=== PATIENT | female | born 1955 | race Caucasian/White ===

== ENCOUNTER 2017-02-20 19:37 | Emergency (ER) | payer OTHER ==
[~2017-02-20] VITALS: Ht 160 cm; Wt 57.0 kg
[2017-02-20 20:11] VITALS: Ht 160 cm; Wt 57.0 kg
[2017-02-20 20:30] VITALS: BP 138/77; PULSE 77; RESP 20; TEMP 98.5
--- NOTE | 2017-02-20 20:48 | RADRPT ---
PROCEDURE: XR Chest. CLINICAL INDICATION: Chest pain. TECHNIQUE: Portable AP upright view of the chest was obtained. COMPARISON: None. FINDINGS: The cardiomediastinal silhouette is within normal limits. The lungs are clear, the left hemidiaphra gm is mildly elevated. There is no evidence for pleural effusion, pneumothorax or pulmonary vascula r congestion. Internal fixation plate and screws of the visible right humerus are demonstrated. Th ere is concern for a nondisplaced left humeral neck fracture. Calcification of the aorta is present. RPTAT:HJJR IMPRESSION: 1. Elevation of the left hemidiaphragm without evidence for acute intrathoracic pathology. 2. Internally fixated right proximal humerus fracture. 3. Partially visualized fracture of the left humeral neck. 4. Aortic atherosclerosis is present. Physician Mackenzie Date Time Electronically viewed and signed by Physician Mackenzie on 02/20/2017 20:48 /
--- NOTE | 2017-02-20 20:50 | RADRPT ---
PROCEDURE: XR Elbow. CLINICAL INDICATION: Left elbow pain, post traumatic TECHNIQUE: AP, lateral and oblique views of the left elbow performed. COMPARISON: None. FINDINGS: There is normal mineralization and alignment. No fracture or osseous lesion is identified. The dista l humerus, proximal radius and proximal ulna are unremarkable, and the joint spaces are preserved. T he soft tissues are unremarkable. There is no evidence of a joint effusion. Thin linear superficial subcutaneous needle-like radiopaque foreign body in the antecubital fossa is approximately 5 mm in l ength RPTAT:HJJR IMPRESSION: 1. No evidence of acute osseous abnormality of the left elbow. 2. Thin subcutaneous metallic type density concerning for a radiopaque foreign body, possibly a nee dle fragment, within the antecubital fossa. Physician Mackenzie Date Time Electronically viewed and signed by Physician Mackenzie on 02/20/2017 20:50 /
--- NOTE | 2017-02-20 20:51 | RADRPT ---
PROCEDURE: XR shoulder. CLINICAL INDICATION: Post traumatic left shoulder pain TECHNIQUE: Two views of the left shoulder were performed. COMPARISON: None available. FINDINGS: Abnormal lucency of the proximal humeral neck is consistent with an acute fracture. The scapula and visualized clavicle are unremarkable . The joint spaces are preserved. Mild soft tissue swelling is present RPTAT:HJJR IMPRESSION: Acute, closed, nondisplaced left humeral neck fracture. Physician Mackenzie Date Time Electronically viewed and signed by Arben Davis Physician on 02/20/2017 20:50 JR/
[2017-02-20] MEDS ORDERED: ONDANSETRON (ODT) 4 MG TAB ODT STA (20:56)
[2017-02-20] MEDS ORDERED: morphine 10 MG INJ IM ONE (21:00)
--- NOTE | 2017-02-20 21:32 | ERD ---
ER Documentation Chief Complaint Date/Time DATE: 02/20/17 TIME: 21:25 Chief Complaint PAIN TO BROKEN LEFT ARM; SEEN AT [facility] YESTERDAY; DID NOT FEEL RX. HPI This is a 61-year-old female, complains of pain to her broken left shoulder. She denies any fevers or chills. Denies any new trauma. Denies any other current issues. Denies any numbness or tingling. Patient was seen at [facility] and placed in a sling. States she was not given pain medication prescription. ROS All systems reviewed and are negative except as per history of present illness. Physical Exam Vitals Vital Signs Date Time Temp Pulse Resp B/P Pulse Ox O2 Delivery O2 Flow Rate FiO2 02/20/17 20:11 98.5 100 22 140/82 100 Physical Exam Const: [] Head: Atraumatic Eyes: Normal Conjunctiva ENT: Normal External Ears, Nose and Mouth. Neck: Full range of motion..~ No meningismus. Resp: Clear to auscultation bilaterally Cardio: Regular rate and rhythm, no murmurs Abd: Soft, non tender, non distended. Normal bowel sounds Skin: No petechiae or rashes Back: No midline or flank tenderness Ext: No cyanosis, or edema Neur: Awake and alert Psych: Normal Mood and Affect Results 24 hrs Current Medications Medications (Trade) Dose Ordered Sig/Becka Route PRN Reason Start Time Stop Time Status Last Admin Dose Admin Morphine Sulfate (morphine) 4 mg ONCE ONCE IM 02/20/17 21:00 02/20/17 21:01 DC 02/20/17 21:06 Ondansetron HCl (Zofran Odt) 4 mg ONCE STAT ODT 02/20/17 20:56 02/20/17 20:57 DC 02/20/17 21:06 Procedures/MDM X-ray Shoulder 3V Interpreted by me: Bones: Community humerus fracture Joints: No dislocation Foreign body: None X-ray Elbow 3V Interpreted by me: Fat Pads: [Normal] Bones: [No fracture] Joints: [No dislocation] Foreign body: [None] Medical decision-making: Patient has a fracture. She was placed in a sling at [facility] yesterday. Given pain medications here with the resolved. Patient will be discharged home. Departure Diagnosis: Primary Impression: Shoulder fracture Encounter type: initial encounter Fracture type: closed Laterality: left Qualified Code: S42.92XA - Shoulder fracture, left, closed, initial encounter Condition: Stable NILESH CORTES February 20, 2017 21:32
[2017-02-20] MEDS ORDERED: HYDR-902 PO (21:33)
== END 2017-02-20 22:04 | disposition home or self-care (01) ==
LOC: E/R 19:37
DX: S42.92XA Fracture of left shoulder girdle, part unspecified, initial encounter for closed fracture (principal); R07.9 Chest pain, unspecified; X58.XXXA Exposure to other specified factors, initial encounter; Y92.9 Unspecified place or not applicable
CPT/HCPCS: 71010; 73030; 73080; 96372; 99284; J2270

== ENCOUNTER 2017-03-06 17:09 | Inpatient (IN) | payer OTHER, MEDICAID ==
[~2017-03-06] VITALS: Ht 160 cm; Wt 59.6 kg
[~2017-03-06 17:09] MED LIST: HYDR-902 PO
[2017-03-06] MEDS ORDERED: CEFEPIME 2GM/50 ML (PMX) 50 ML IVPB STA (17:26)
[2017-03-06] MEDS ORDERED: SODIUM CHLORIDE 0.9% 1L BAG IV* STA (17:26)
[2017-03-06] MEDS ORDERED: ALBUTEROL 0.083% (NEB) 2.5 MG/3 ML AMP HHN STA ×2 (17:26→20:23)
[2017-03-06] MEDS ORDERED: METHYLPREDNISOLONE 125 MG INJ IV ONE (17:30)
[2017-03-06] MEDS ORDERED: IPRATROPIUM (NEB) 0.5 MG/2.5 ML AMP HHN ONE (17:30)
--- NOTE | 2017-03-06 17:51 | ERA ---
ER Documentation Chief Complaint Date/Time DATE: 03/06/17 TIME: 17:50 Chief Complaint pt is here for sob x 4 days HPI 61-year-old female with 4 days of progressive shortness of breath but is now severe. She has a history of asthma. She is also had significant cough as well as feeling feverish and having chills. She also has generalized weakness and malaise. She denies chest pain. She states that she feels "very sick". Has malaise and generalized weakness. She does have left arm pain where she recently suffered a humeral fracture and is currently in a sling for healing. She was evaluated and no surgery was required at that point. ROS All systems reviewed and are negative except as per history of present illness. Medications Home Meds Reported Medications Fluoxetine Hcl* (Prozac*) 40 Mg Capsule, 40 MG PO DAILY, CAP 03/06/17 Discontinued Scripts Hydrocodone/Acetaminophen ([facility] 10-325 Tablet) 1 Each Tablet, 1 TAB PO Q6H Y for PAIN, #20 TAB Prov:NILESH CORTES 02/20/17 Allergies Allergies: Coded Allergies: Sulfa (Sulfonamide Antibiotics) (Unverified Allergy, Unknown, RASH HIVES, 03/06/17) PMhx/Soc History of Surgery: Yes (RIGHT ARM, SHOULDER AND ANNIKA HIPS X 4) Anesthesia Reaction: No Hx Respiratory Disorders: No Hx Cardiac Disorders: No Hx Psychiatric Problems: Yes (ANXIETY) Hx Miscellaneous Medical Probl: Yes (EPILEPSY) Hx Alcohol Use: Yes Hx Substance Use: No Hx Tobacco Use: Yes Smoking Status: Never smoker Physical Exam Vitals Vital Signs Date Time Temp Pulse Resp B/P Pulse Ox O2 Delivery O2 Flow Rate FiO2 03/06/17 17:55 117 26 126/76 100 Mask 03/06/17 17:37 89 18 94 21 03/06/17 17:22 98.3 132 18 118/62 95 Physical Exam Const: [] Moderate distress, appears very short of breath, tachypnea Head: Atraumatic Eyes: Normal Conjunctiva ENT: Normal External Ears, Nose and Mouth. Neck: Full range of motion..~ No meningismus. Resp: I lateral expiratory wheezes, mild tachypnea Cardio: Regular tachycardia, no murmurs Abd: Soft, non tender, non distended. Normal bowel sounds Skin: No petechiae or rashes Back: No midline or flank tenderness Ext: No cyanosis, or edema Neur: Awake and alert and oriented 3, no focal deficits Psych: Anxious. Result Diagram: 03/06/17 1900 03/06/17 1850 Results 24 hrs Laboratory Tests Test 03/06/17 17:26 03/06/17 18:50 03/06/17 19:00 Lactic Acid Level 2.8mmol/L Prothrombin Time 14.2Sec Prothrombin Time Ratio 1.1 INR International Normalized Ratio 1.10 Activated Partial Thromboplast Time 20.0Sec Sodium Level 141mmol/L Potassium Level 3.1mmol/L Chloride Level 116mmol/L Carbon Dioxide Level 19mmol/L Anion Gap 9 Blood Urea Nitrogen 20mg/dl Creatinine 0.67mg/dl Glucose Level 117mg/dl Calcium Level 8.5mg/dl Total Bilirubin 0.1mg/dl Direct Bilirubin 0.00mg/dl Indirect Bilirubin 0.1mg/dl Aspartate Amino Transf (AST/SGOT) 72IU/L Alanine Aminotransferase (ALT/SGPT) 49IU/L Alkaline Phosphatase 182IU/L Troponin I 0.020ng/ml B-Type Natriuretic Peptide 430PG/ML Total Protein 7.4g/dl Albumin 3.3g/dl Globulin 4.10g/dl Albumin/Globulin Ratio 0.80 White Blood Count 13.210^3/ul Red Blood Count 3.6010^6/ul Hemoglobin 11.1g/dl Hematocrit 34.2% Mean Corpuscular Volume 95.0fl Mean Corpuscular Hemoglobin 30.8pg Mean Corpuscular Hemoglobin Concent 32.5g/dl Red Cell Distribution Width 15.4% Platelet Count 67702^3/UL Mean Platelet Volume 9.3fl Neutrophils % 90.8% Lymphocytes % 5.0% Monocytes % 2.8% Eosinophils % 0.4% Basophils % 0.3% Nucleated Red Blood Cells % 0.0/100WBC Neutrophils # 12.010^3/ul Lymphocytes # 0.710^3/ul Monocytes # 0.410^3/ul Eosinophils # 0.110^3/ul Basophils # 0.010^3/ul Nucleated Red Blood Cells # 0.010^3/ul Current Medications Medications (Trade) Dose Ordered Sig/Becka Route PRN Reason Start Time Stop Time Status Last Admin Dose Admin Sodium Chloride 1760 ml 1,760 ml BOLUS OVER 2 HOURS STAT IV* 03/06/17 17:26 03/06/17 17:29 DC 03/06/17 18:10 Cefepime HCl (Maxipime 2gm/50 ml (Pmx)) 50 ml @ 100 mls/hr ONCE STAT IVPB 03/06/17 17:26 03/06/17 17:55 DC 03/06/17 19:04 Albuterol (Proventil 0.083% (Neb)) 10 mg ONCE STAT HHN 03/06/17 17:26 03/06/17 17:29 DC 03/06/17 17:35 Ipratropium Madeline (Atrovent 0.02% (Neb)) 1 mg ONCE ONCE HHN 03/06/17 17:30 03/06/17 17:31 DC 03/06/17 17:35 Methylprednisolone Sodium Succinate (Solu-Medrol) 125 mg ONCE ONCE IV 03/06/17 17:30 03/06/17 17:31 DC 03/06/17 18:10 Morphine Sulfate 4 mg 4 mg ONCE STAT IV 03/06/17 18:46 03/06/17 18:48 DC 03/06/17 18:50 Sodium Chloride (NS) 1,000 ml @ 1,000 mls/hr Q1H ONCE IV 03/06/17 20:30 03/06/17 21:29 03/06/17 21:10 Albuterol (Proventil 0.083% (Neb)) 5 mg ONCE STAT HHN 03/06/17 20:23 03/06/17 20:24 DC Ondansetron HCl (Zofran Inj) 4 mg ER BRIDGE PRN IV NAUSEA AND/OR VOMITING 03/06/17 21:00 03/07/17 20:59 Acetaminophen (Tylenol Tab) 650 mg ER BRIDGE PRN PO MILD PAIN/FEVER 03/06/17 21:00 03/07/17 20:59 Procedures/MDM Pneumonia with sepsis. Patient presented in respiratory extremis with wheezing. 10 mg albuterol and 1 mg Atrovent breathing treatment was given. Patient is very tachycardic. Septic workup was performed and she was given 30 cc/kg of IV fluid. Treated with cefepime as well. She is also given morphine for her recent fracture pain of the left arm. Patient remained tachycardic of the tachycardia was improved with fluid administration. Patient had no episodes of hypotension. Vancomycin was added. Patient required in another breathing treatment and saturation was going down into the low 90s when taken off the nonrebreather. Spoke with the [facility] doctor who agreed the patient was not stable for transfer at this time. Dr. Deng. He authorized admission to panel doctor. She will be admitted to the left telemetry as I believe the patient is improved enough to not require ICU. EKG interpretation: Sinus tachycardia rate of 120, shortened AK interval, left axis deviation, no ST or T-wave changes concerning for acute ischemia program dir interpretation: Sinus tachycardia improved with fluid administration. No other arrhythmias Chest x-ray interpretation: Large left-sided pneumonia, no pneumothorax, no pulmonary edema, no fractures Left humerus x-ray: Acute left proximal humerus fracture. Critical care time 44 minutes: This includes treatment of pneumonia with sepsis and respiratory distress, careful fluid administration, early antibiotic administration, consideration of noninvasive positive pressure ventilation, use of multiple bronchodilators, multiple visits patient's bedside to reassess status, chart reviewed, discussion with admitting doctor. This does not include any billable procedures per Departure Diagnosis: Primary Impression: Sepsis due to pneumonia Additional Impressions: COPD exacerbation Lactic acidosis Respiratory distress Condition: Serious TAMIA GOMEZ DO March 06, 2017 17:51
[2017-03-06] MEDS ORDERED: FLUO40CA10 PO (18:08)
[2017-03-06 18:42] LABS: ADD SCAN DIFF NO
[2017-03-06] MEDS ORDERED: morphine 4 MG/ML VIAL IV STA ×2 (18:46→21:30)
[2017-03-06 19:37] LABS: BASOPHILS % 0.3 % (0.0-2.0); EOSINOPHILS # 0.1 10^3/ul (0.0-0.5); EOSINOPHILS % 0.4 % (0.0-7.0); HEMATOCRIT 34.2 % (37.0-47.0); HEMOGLOBIN 11.1 g/dl (12.0-16.0); LYMPHOCYTES # 0.7 10^3/ul (0.8-2.9); MEAN CORPUSCULAR HEMOGLOBIN 30.8 pg (29.0-33.0); MEAN CORPUSCULAR HGB CONC 32.5 g/dl (32.0-37.0); MEAN PLATELET VOLUME 9.3 fl (7.4-10.4); MONOCYTE # 0.4 10^3/ul (0.3-0.9); MONOCYTES % 2.8 % (0.0-11.0); NEUTROPHILS % 90.8 % (39.0-77.0); PLATELET COUNT 324 10^3/UL (140-415); RED CELL DISTRIBUTION WIDTH 15.4 % (11.5-14.5); WHITE BLOOD COUNT 13.2 10^3/ul (4.8-10.8)
[2017-03-06 19:41] LABS: INR 1.1; PROTIME 14.2 Sec (12.2-14.2); PT RATIO 1.1
[2017-03-06 19:46] LABS: ALBUMIN 3.3 g/dl (3.3-4.9); POTASSIUM 3.1 mmol/L (3.5-5.1)
[2017-03-06 19:48] LABS: CREATININE 0.67 mg/dl (0.44-1.00)
[2017-03-06 19:49] LABS: ALBUMIN/GLOBULIN RATIO 0.8; BILIRUBIN,INDIRECT 0.1 mg/dl (0-1.1); BILIRUBIN,TOTAL 0.1 mg/dl (0.2-1.3); TOTAL PROTEIN 7.4 g/dl (6.1-8.1)
[2017-03-06 19:50] LABS: CALCIUM 8.5 mg/dl (8.4-10.2)
[2017-03-06 20:01] LABS: TROPONIN-I 0.02 ng/ml (0.00-0.12)
[2017-03-06] MEDS ORDERED: SOD CHLORIDE 0.9% 1,000 ML IV ONE (20:30)
[2017-03-06] MEDS ORDERED: ACETAMINOPHEN 325 MG TAB PO PRN ×2 (21:00→22:30)
[2017-03-06] MEDS ORDERED: ONDANSETRON 4 MG INJ IV PRN ×3 (21:00→23:00)
--- NOTE | 2017-03-06 21:27 | RADRPT ---
PROCEDURE: XR Chest. CLINICAL INDICATION: Possible sepsis. TECHNIQUE: Single frontal view of the chest. COMPARISON: 02/20/2017. FINDINGS: Mildly prominent cardiac silhouette. Atherosclerotic calcifications in the thoracic aorta. Right u pper lung air space disease in left mid lung and lung base air space disease, greater at the left mi d lung and lung base. Mild pulmonary vascular congestion. The above findings are new over interval since 02/20/2017, suggesting pneumonias and superimposed ne w mild pulmonary vascular congestion. No signs of pleural fluid or pneumothorax are seen. Demineralization limits evaluation of fine osseous detail. Mild impaction fracture at the surgical neck of the left humerus is seen. Otherwise, the osseous structures and soft tissues are unremarkab le. IMPRESSION: New bilateral air space disease suggests pneumonias. RPTAT: [facility] Physician Ernesto Date Time Electronically viewed and signed by Physician Ernesto on 03/06/2017 21:27 RS/
--- NOTE | 2017-03-06 21:29 | RADRPT ---
PROCEDURE: X-ray left humerus. CLINICAL INDICATION: Injury left humerus with pain at the proximal humerus. TECHNIQUE: 2 views left humerus. COMPARISON: Left shoulder series dated 02/20/2017. FINDINGS: Demineralization limits evaluation of fine osseous detail. Fracture of the surgical neck and likely greater tuberosity of the proximal left humerus is again seen, with varus angulation of the distal fragment. The distal fragment demonstrates superior subluxation with respect the humeral head. Angu lation and superior subluxation are increased over interval since left shoulder plain film series da trudy 02/20/2017. Consider CT examination for more sensitive and specific evaluation. IMPRESSION: Fracture at the surgical neck and likely greater tuberosity of the proximal left humerus, with incre ased varus angulation and superior subluxation of the distal fragment over interval since shoulder s eries dated 02/20/2017. RPTAT: [facility] Physician Ernesto Date Time Electronically viewed and signed by Physician Ernesto on 03/06/2017 21:29 RS/
[2017-03-06] MEDS ORDERED: VANCOMYCIN 1 GM (PMX) 250 ML IVPB SCH (21:30)
[2017-03-06] MEDS ORDERED: POTASSIUM CHLORIDE (SR) 20 MEQ TAB PO STA (21:30)
[2017-03-06 21:49] VITALS: PULSE 103
[2017-03-06 21:51] VITALS: Ht 160 cm; Wt 59.6 kg
[2017-03-06] MEDS ORDERED: GABA400C14 PO (22:02)
[2017-03-06 22:22] VITALS: BP 157/81; PULSE 104; RESP 20
[2017-03-06] MEDS ORDERED: LABETALOL HCL 20MG INJ IV PRN (22:30)
[2017-03-07] VITALS (11 sets, daily range): BP systolic 120–150; BP diastolic 61–88; PULSE 96–121; RESP 18–20
[2017-03-07] MEDS: LEVOFLOXACIN 500MG/D5W (PMX) 100 ML IVPB SCH ×2 (00:50→21:56)
[2017-03-07] MEDS ORDERED: LORAZEPAM 2 MG INJ IV ONE (01:00)
[2017-03-07] MEDS: morphine 2 MG INJ IV PRN ×5 (02:04→21:56)
[2017-03-07] MEDS ORDERED: IPRATROPIUM (NEB) 0.5 MG/2.5 ML AMP HHN PRN ×2 (04:00→15:00)
[2017-03-07] MEDS ORDERED: VITAMIN A & D 5 GM OINT PACKET TOP ONE (04:43)
--- NOTE | 2017-03-07 05:16 | HP ---
DATE OF ADMISSION: 03/06/2017 CHIEF COMPLAINT: Shortness of breath and cough. HISTORY OF PRESENT ILLNESS: The patient is a 61-year-old female with a history of asthma/COPD, anxi ety/depression, hepatitis C, skin cancer, and recent left humeral fracture who presented to the [facility] department with shortness of breath and cough. The symptoms have been going on for the past 4 days and have been progressively getting worse. She also reported subjective fever. She denied a ny chest pain, nausea, vomiting, abdominal pain, or urinary symptoms. The patient was seen here in the ER 2 weeks ago for pain medication refill secondary to recent humeral fracture. She has been in a sling ever since. She follows up [facility]. When she presented to the ER this time, blood pressure was 118/63, heart rate 132, respiratory rate 18, temperature 98.3, oxygen saturation 95% on room air. Chest x-ray shows bilateral airspace disea se suggestive of pneumonia. Left humeral x-ray shows fracture at the surgical neck and likely great er tuberosity with the proximal left humerus with increased varus angulation and superior subluxatio n of the distal fragment over the interval since 02/20/2017. Laboratory shows WBC of 13.2, hemoglob in 11.1, platelet count 324. Potassium 3.1, chloride 116, bicarbonate 19. Initial lactic acid 2.8, repeat 1.5, AST 72, alkaline phosphatase 182. She was given 125 mg of Solu-Medrol, breathing treat ment with albuterol and Atrovent, and was started on vancomycin and cefepime. Her potassium was rep leted. REVIEW OF SYSTEMS: A 12-point review was performed and negative except as mentioned in HPI. PAST MEDICAL HISTORY: As per HPI. PAST SURGICAL HISTORY: She has had multiple surgeries due to fractures. SOCIAL HISTORY: Denied a history of tobacco, alcohol, or illicit drug use. ALLERGIES: SULFA ANTIBIOTICS. HOME MEDICATIONS 1. Prozac. 2. Gabapentin. PHYSICAL EXAMINATION: VITAL SIGNS: Blood pressure 157/81, heart rate 104, respiration rate 20, temperature 98.4, oxygen s aturation 92% on room air. GENERAL: The patient in distress due to shortness of breath, and she is not fully able to speak in full sentences. HEENT: No obvious head deformity. Pupils are reactive. Extraocular muscles intact. CARDIOVASCULAR: Tachycardic, regular rhythm. LUNGS: There is diffuse wheezing. ABDOMEN: Soft, nontender, nondistended. Positive bowel sounds. EXTREMITIES: No edema. Left upper extremity is placed in a sling. LABORATORY DATA: Pertinent positives results as mentioned in the HPI. IMAGING: Chest x-ray and left humeral x-ray with results as mentioned in the HPI. IMPRESSION: 1. Sepsis as evidenced by leukocytosis and tachycardia, secondary to pneumonia. 2. Asthma exacerbation secondary to above. 3. Recent left humeral fracture on sling. The patient has been following up at [facility]. 4. Lactic acidosis, resolved. 5. Hypokalemia, repleted. 6. Metabolic acidosis. 7. History of anxiety/depression. 8. History of skin cancer. 9. History of hepatitis C. 10. Normocytic anemia, evaluate for iron deficiency. PLAN: Continue telemetry monitoring. She will be placed on antibiotic. We will follow up on the c ulture results including respiratory culture if able to provide sputum. She will receive IV fluids. We will provide pain medication and antiemetic as needed. She will receive breathing treatments a nd will be placed on Solu-Medrol. She will be continued with her Prozac and Gabapentin but with dos e adjustment. We will replace electrolytes as needed. We will send ferritin and iron profile and a lso will obtain FOBT given her age to work up for anemia. Dictated By: NILESH JONES/JORDAN Conf#: [id number] DID#: [id number]
[2017-03-07 06:40] LABS: ADD SCAN DIFF NO
[2017-03-07 06:54] LABS: BASOPHILS % 0.3 % (0.0-2.0); EOSINOPHILS # 0.1 10^3/ul (0.0-0.5); EOSINOPHILS % 1.1 % (0.0-7.0); HEMATOCRIT 29.9 % (37.0-47.0); LYMPHOCYTES # 1.6 10^3/ul (0.8-2.9); LYMPHOCYTES % 12.2 % (15.0-51.0); MEAN CORPUSCULAR HEMOGLOBIN 31.1 pg (29.0-33.0); MEAN CORPUSCULAR HGB CONC 33.4 g/dl (32.0-37.0); MEAN CORPUSCULAR VOLUME 92.9 fl (82.0-101.0); MEAN PLATELET VOLUME 9.4 fl (7.4-10.4); MONOCYTE # 0.5 10^3/ul (0.3-0.9); MONOCYTES % 3.6 % (0.0-11.0); NEUTROPHIL # 10.9 10^3/ul (1.6-7.5); PLATELET COUNT 276 10^3/UL (140-415); RED BLOOD COUNT 3.22 10^6/ul (4.20-5.40); RED CELL DISTRIBUTION WIDTH 15.5 % (11.5-14.5); WHITE BLOOD COUNT 13.2 10^3/ul (4.8-10.8)
[2017-03-07 07:17] LABS: ALBUMIN 3.1 g/dl (3.3-4.9); ALBUMIN/GLOBULIN RATIO 0.86; BILIRUBIN,INDIRECT 0.5 mg/dl (0-1.1); BILIRUBIN,TOTAL 0.5 mg/dl (0.2-1.3); CALCIUM 8.7 mg/dl (8.4-10.2); CREATININE 0.41 mg/dl (0.44-1.00); MAGNESIUM 1.3 mg/dl (1.7-2.5); POTASSIUM 4.4 mmol/L (3.5-5.1); TOTAL PROTEIN 6.7 g/dl (6.1-8.1)
[2017-03-07] MEDS: ALPRAZOLAM 0.25 MG TAB PO SCH ×2 (10:04→13:32)
[2017-03-07] MEDS: FLUOXETINE 20 MG CAP PO SCH (10:04)
[2017-03-07] MEDS: METHYLPREDNISOLONE 125 MG INJ IV SCH ×2 (10:04→20:24)
--- NOTE | 2017-03-07 12:23 | DS ---
Date/Time of Note Date/Time of Note DATE: 03/07/17 TIME: 12:23 Discharge Summary Admission/Discharge Info Admit Date/Time March 06, 2017 at 20:56 Discharge Date/Time Final Diagnosis IMPRESSION: 1. Sepsis as evidenced by leukocytosis and tachycardia, secondary to pneumonia. 2. Asthma exacerbation secondary to above. 3. Recent left humeral fracture on sling. The patient has been following up at [facility]. 4. Lactic acidosis, resolved. 5. Hypokalemia, repleted. 6. Metabolic acidosis. 7. History of anxiety/depression. 8. History of skin cancer. 9. History of hepatitis C. 10. Normocytic anemia, evaluate for iron deficiency. Home Meds Reported Medications Gabapentin* (Gabapentin*) 400 Mg Capsule, 1200 MG PO BID, #270 CAP 03/06/17 Fluoxetine Hcl* (Prozac*) 40 Mg Capsule, 40 MG PO DAILY, CAP 03/06/17 Discontinued Scripts Hydrocodone/Acetaminophen ([place] 10-325 Tablet) 1 Each Tablet, 1 TAB PO Q6H Y for PAIN, #20 TAB Prov:NILESH CORTES 02/20/17 Primary Care Provider Care Physician No Primary Time spent on discharge: > 30 minutes Pending Labs Laboratory Tests Test 03/06/17 17:26 03/06/17 18:50 03/06/17 19:00 03/06/17 20:50 Lactic Acid Level 2.8mmol/L (0.5-2.2) 1.5mmol/L (0.5-2.2) Prothrombin Time 14.2Sec (12.2-14.2) Prothrombin Time Ratio 1.1 INR International Normalized Ratio 1.10 Activated Partial Thromboplast Time 20.0Sec (25.0-35.0) Sodium Level 141mmol/L (135-144) Potassium Level 3.1mmol/L (3.5-5.1) Chloride Level 116mmol/L (97-110) Carbon Dioxide Level 19mmol/L (21-31) Anion Gap 9 (8-16) Blood Urea Nitrogen 20mg/dl (7-20) Creatinine 0.67mg/dl (0.44-1.00) Glucose Level 117mg/dl (70-220) Calcium Level 8.5mg/dl (8.4-10.2) Total Bilirubin 0.1mg/dl (0.2-1.3) Direct Bilirubin 0.00mg/dl (0.00-0.20) Indirect Bilirubin 0.1mg/dl (0-1.1) Aspartate Amino Transf (AST/SGOT) 72IU/L (15-46) Alanine Aminotransferase (ALT/SGPT) 49IU/L (13-69) Alkaline Phosphatase 182IU/L (42-121) Troponin I 0.020ng/ml (0.00-0.12) B-Type Natriuretic Peptide 430PG/ML (0-125) Total Protein 7.4g/dl (6.1-8.1) Albumin 3.3g/dl (3.3-4.9) Globulin 4.10g/dl (1.3-3.2) Albumin/Globulin Ratio 0.80 White Blood Count 13.210^3/ul (4.8-10.8) Red Blood Count 3.6010^6/ul (4.20-5.40) Hemoglobin 11.1g/dl (12.0-16.0) Hematocrit 34.2% (37.0-47.0) Mean Corpuscular Volume 95.0fl (82.0-101.0) Mean Corpuscular Hemoglobin 30.8pg (29.0-33.0) Mean Corpuscular Hemoglobin Concent 32.5g/dl (32.0-37.0) Red Cell Distribution Width 15.4% (11.5-14.5) Platelet Count 90794^3/UL (140-415) Mean Platelet Volume 9.3fl (7.4-10.4) Neutrophils % 90.8% (39.0-77.0) Lymphocytes % 5.0% (15.0-51.0) Monocytes % 2.8% (0.0-11.0) Eosinophils % 0.4% (0.0-7.0) Basophils % 0.3% (0.0-2.0) Nucleated Red Blood Cells % 0.0/100WBC (0.0-0.0) Neutrophils # 12.010^3/ul (1.6-7.5) Lymphocytes # 0.710^3/ul (0.8-2.9) Monocytes # 0.410^3/ul (0.3-0.9) Eosinophils # 0.110^3/ul (0.0-0.5) Basophils # 0.010^3/ul (0.0-0.1) Nucleated Red Blood Cells # 0.010^3/ul (0.0-0.0) Test 03/07/17 06:25 White Blood Count 13.210^3/ul (4.8-10.8) Red Blood Count 3.2210^6/ul (4.20-5.40) Hemoglobin 10.0g/dl (12.0-16.0) Hematocrit 29.9% (37.0-47.0) Mean Corpuscular Volume 92.9fl (82.0-101.0) Mean Corpuscular Hemoglobin 31.1pg (29.0-33.0) Mean Corpuscular Hemoglobin Concent 33.4g/dl (32.0-37.0) Red Cell Distribution Width 15.5% (11.5-14.5) Platelet Count 77181^3/UL (140-415) Mean Platelet Volume 9.4fl (7.4-10.4) Neutrophils % 82.0% (39.0-77.0) Lymphocytes % 12.2% (15.0-51.0) Monocytes % 3.6% (0.0-11.0) Eosinophils % 1.1% (0.0-7.0) Basophils % 0.3% (0.0-2.0) Nucleated Red Blood Cells % 0.0/100WBC (0.0-0.0) Neutrophils # 10.910^3/ul (1.6-7.5) Lymphocytes # 1.610^3/ul (0.8-2.9) Monocytes # 0.510^3/ul (0.3-0.9) Eosinophils # 0.110^3/ul (0.0-0.5) Basophils # 0.010^3/ul (0.0-0.1) Nucleated Red Blood Cells # 0.010^3/ul (0.0-0.0) Sodium Level 135mmol/L (135-144) Potassium Level 4.4mmol/L (3.5-5.1) Chloride Level 106mmol/L (97-110) Carbon Dioxide Level 20mmol/L (21-31) Anion Gap 13 (8-16) Blood Urea Nitrogen 11mg/dl (7-20) Creatinine 0.41mg/dl (0.44-1.00) Glucose Level 92mg/dl (70-220) Lactic Acid Level 1.5mmol/L (0.5-2.2) Calcium Level 8.7mg/dl (8.4-10.2) Phosphorus Level 2.0mg/dl (2.5-4.9) Magnesium Level 1.3mg/dl (1.7-2.5) Total Bilirubin 0.5mg/dl (0.2-1.3) Direct Bilirubin 0.00mg/dl (0.00-0.20) Indirect Bilirubin 0.5mg/dl (0-1.1) Aspartate Amino Transf (AST/SGOT) 60IU/L (15-46) Alanine Aminotransferase (ALT/SGPT) 48IU/L (13-69) Alkaline Phosphatase 152IU/L (42-121) Total Protein 6.7g/dl (6.1-8.1) Albumin 3.1g/dl (3.3-4.9) Globulin 3.60g/dl (1.3-3.2) Albumin/Globulin Ratio 0.86 JOHNNY KUMAR March 07, 2017 12:23
[2017-03-07] MEDS ORDERED: morphine 4 MG/ML VIAL IV STA (13:24)
[2017-03-07 14:58] LABS: CK-MB 5.69 ng/ml (0.0-2.4)
[2017-03-07 15:01] LABS: TROPONIN-I 0.013 ng/ml (0.00-0.12)
[2017-03-07 15:17] LABS: CREATINE KINASE 166 IU/L (23-200)
[2017-03-07 15:27] LABS: CK-MB 4.57 ng/ml (0.0-2.4)
[2017-03-07 15:33] LABS: TROPONIN-I < 0.012 ng/ml (0.00-0.12)
[2017-03-07] MEDS: IPRATROPIUM (NEB) 0.5 MG/2.5 ML AMP HHN SCH ×2 (16:15→20:45)
[2017-03-07] MEDS: LEVALBUTEROL (NEB) 0.63 MG/3 ML AMP HHN PRN ×2 (16:15→20:45)
[2017-03-07] MEDS: LEVALBUTEROL (NEB) 0.31 MG/3 ML AMP HHN SCH ×2 (16:20→20:47)
[2017-03-07] MEDS: OXYCODONE/ACETAMINOPHEN (5/325) TAB PO PRN (18:48)
[2017-03-07] MEDS: ALPRAZOLAM 0.25 MG TAB PO PRN (20:24)
[2017-03-08] VITALS (12 sets, daily range): BP systolic 134–147; BP diastolic 66–78; PULSE 83–116; RESP 17–20
[2017-03-08] MEDS: OXYCODONE/ACETAMINOPHEN (5/325) TAB PO PRN ×3 (00:46→20:01)
[2017-03-08] MEDS: IPRATROPIUM (NEB) 0.5 MG/2.5 ML AMP HHN SCH ×6 (00:57→20:24)
[2017-03-08] MEDS: LEVALBUTEROL (NEB) 0.31 MG/3 ML AMP HHN SCH ×6 (00:57→20:24)
[2017-03-08] MEDS: morphine 2 MG INJ IV PRN ×5 (02:34→20:37)
[2017-03-08] MEDS: ALPRAZOLAM 0.25 MG TAB PO PRN ×3 (06:00→22:59)
[2017-03-08 06:14] LABS: ADD SCAN DIFF NO
[2017-03-08 06:18] LABS: BASOPHILS % 0.1 % (0.0-2.0); EOSINOPHILS % 0.2 % (0.0-7.0); HEMATOCRIT 30.3 % (37.0-47.0); HEMOGLOBIN 9.9 g/dl (12.0-16.0); LYMPHOCYTES # 1.1 10^3/ul (0.8-2.9); LYMPHOCYTES % 10.9 % (15.0-51.0); MEAN CORPUSCULAR HGB CONC 32.7 g/dl (32.0-37.0); MEAN PLATELET VOLUME 9.8 fl (7.4-10.4); MONOCYTE # 0.3 10^3/ul (0.3-0.9); MONOCYTES % 3.5 % (0.0-11.0); NEUTROPHIL # 8.2 10^3/ul (1.6-7.5); NEUTROPHILS % 84.6 % (39.0-77.0); PLATELET COUNT 288 10^3/UL (140-415); RED BLOOD COUNT 3.19 10^6/ul (4.20-5.40); RED CELL DISTRIBUTION WIDTH 15.9 % (11.5-14.5); WHITE BLOOD COUNT 9.7 10^3/ul (4.8-10.8)
[2017-03-08 06:28] LABS: POTASSIUM 4.7 mmol/L (3.5-5.1)
[2017-03-08 06:31] LABS: CREATININE 0.42 mg/dl (0.44-1.00)
[2017-03-08 06:32] LABS: CALCIUM 8.7 mg/dl (8.4-10.2); MAGNESIUM 1.8 mg/dl (1.7-2.5)
[2017-03-08] MEDS: METHYLPREDNISOLONE 125 MG INJ IV SCH ×2 (08:29→20:06)
[2017-03-08] MEDS: FLUOXETINE 20 MG CAP PO SCH (08:29)
[2017-03-08] MEDS: LEVALBUTEROL (NEB) 0.63 MG/3 ML AMP HHN PRN ×2 (09:43→13:41)
--- NOTE | 2017-03-08 17:41 | PDOCDIS ---
Discharge Instructions CONDITION Patient Condition: Good HOME CARE INSTRUCTIONS: Diet Instructions: Low Fat /Cholesterol ACTIVITY: Activity Restrictions: Slowly Increase Activity Rest between Activity Avoid heavy lifting FOLLOW UP/APPOINTMENTS Appointments Follow up with PCP as out-pt MADELYN LOPES MD March 08, 2017 17:41
[2017-03-08] MEDS ORDERED: PRED10TA PO (17:44)
[2017-03-08] MEDS ORDERED: IPRA4AER INHALATION (17:44)
[2017-03-08] MEDS ORDERED: LEVO500T72 PO (17:44)
--- NOTE | 2017-03-08 18:36 | DS ---
DATE OF ADMISSION: 03/06/2017 DATE OF DISCHARGE: 03/08/2017 CONSULTANTS: None. DIAGNOSES: 1. Pneumonia. 2. Asthma exacerbation. 3. Recent left humeral fracture, in sling. 4. Lactic acidosis, resolved. 5. Hypokalemia, repleted. 6. Metabolic acidosis, repleted. 7. Anxiety, depression. 8. History of skin cancer. 9. History of hepatitis C. 10. Normocytic normochromic anemia. MEDICATIONS: 1. Combivent. 2. Levaquin. 3. Prednisone. 4. Prozac. 5. Gabapentin. ALLERGIES: SULFA. LABORATORY DATA: WBC 9.7, hemoglobin 9.9, hematocrit 30.3, platelets 288. Sodium 138, potassium 4. 7, chloride 111, bicarbonate 27, BUN 13, creatinine 0.42, glucose 109. Lactic acid 1.5. Calcium 8. 7. Troponin negative x2. HOSPITAL COURSE: This is a 61-year-old female with past medical history of asthma, COPD, anxiety, d epression, hepatitis C, skin cancer, and recent left humeral fracture, who presented to emergency de partment secondary to having shortness of breath and cough. The patient says the symptoms have been going on for 4 days and have been getting progressively worse. She also had reported subjective fe prudencio. Chest x-ray was obtained which was suggestive of pneumonia. Left humerus x-ray showed fractur e of the surgical neck, likely greater tuberosity with the proximal left humerus with increased varu s angulation and superior subluxation of the distal fragment over the interim since 02/20/2017. WBC was found to be 13.2. The patient was started on vancomycin, cefepime, Solu-Medrol, albuterol and Atrovent. She was admitted to telemetry floor where she was continued on IV antibiotics and her WBC has improved significantly. The patient was found to be a [facility] patient and she refused to be transferred to that facility. Therefore, she was fully managed during this course of hospitalizati on with IV antibiotics and breathing treatments. This morning, patient's vitals have been stable wi th temperature of 98.2, pulse 94, respirations 20, blood pressure 138/79, oxygen saturation 99%. Th e patient has been treated with a breathing treatment, IV antibiotics. At this time, patient is medically stable to be transferred to [facility] or house on oral me dication. The patient apparently stated that she will be accepted to board and care in a couple day s. Although at this time, the patient is medically cleared to be discharged home on oral antibiotic s and breathing treatment. CONDITION AT TIME OF DISCHARGE: Stable. Dictated By: MADELYN LOPES MD PN/NTS Conf#: [id number] DID#: [id number]
[2017-03-08] MEDS: LEVOFLOXACIN 500MG/D5W (PMX) 100 ML IVPB SCH (22:59)
[2017-03-09] VITALS (9 sets, daily range): BP systolic 111–155; BP diastolic 65–72; PULSE 78–115; RESP 17–18
[2017-03-09] MEDS: LEVALBUTEROL (NEB) 0.31 MG/3 ML AMP HHN SCH ×5 (00:28→16:58)
[2017-03-09] MEDS: IPRATROPIUM (NEB) 0.5 MG/2.5 ML AMP HHN SCH ×5 (00:31→16:58)
[2017-03-09] MEDS: morphine 2 MG INJ IV PRN ×5 (00:37→16:49)
[2017-03-09] MEDS: OXYCODONE/ACETAMINOPHEN (5/325) TAB PO PRN ×2 (03:17→09:52)
[2017-03-09 06:41] LABS: ADD SCAN DIFF NO
[2017-03-09 07:14] LABS: CALCIUM 8.9 mg/dl (8.4-10.2); CREATININE 0.44 mg/dl (0.44-1.00); POTASSIUM 4.2 mmol/L (3.5-5.1)
[2017-03-09] MEDS: FLUOXETINE 20 MG CAP PO SCH (08:38)
[2017-03-09] MEDS: METHYLPREDNISOLONE 125 MG INJ IV SCH (08:38)
[2017-03-09 10:33] LABS: BASOPHILS % 0.2 % (0.0-2.0); HEMATOCRIT 31.6 % (37.0-47.0); HEMOGLOBIN 10.2 g/dl (12.0-16.0); LYMPHOCYTES # 1.2 10^3/ul (0.8-2.9); LYMPHOCYTES % 10.9 % (15.0-51.0); MEAN CORPUSCULAR HEMOGLOBIN 31.2 pg (29.0-33.0); MEAN CORPUSCULAR HGB CONC 32.3 g/dl (32.0-37.0); MEAN CORPUSCULAR VOLUME 96.6 fl (82.0-101.0); MEAN PLATELET VOLUME 10.2 fl (7.4-10.4); MONOCYTE # 0.5 10^3/ul (0.3-0.9); MONOCYTES % 4.7 % (0.0-11.0); NEUTROPHILS % 83.6 % (39.0-77.0); PLATELET COUNT 347 10^3/UL (140-415); RED BLOOD COUNT 3.27 10^6/ul (4.20-5.40); RED CELL DISTRIBUTION WIDTH 15.7 % (11.5-14.5); WHITE BLOOD COUNT 10.7 10^3/ul (4.8-10.8)
--- NOTE | 2017-03-09 15:09 | PN ---
Date/Time of Note Date/Time of Note DATE: 03/09/17 TIME: 15:06 Assessment/Plan VTE Prophylaxis VTE Prophylaxis Intervention: SCD's Lines/Catheters IV Catheter Type (from [facility]): [place] Assessment/Plan Chief Complaint/Hosp Course DIAGNOSES: 1. Pneumonia. Improve continue Levaquin 2. Asthma . Continue breathing treatment 3. Recent left humeral fracture, in sling. 4. Lactic acidosis, resolved. 5. Hypokalemia, repleted. 6. Metabolic acidosis, repleted. 7. Anxiety, depression. 8. History of skin cancer. 9. History of hepatitis C. 10. Normocytic normochromic anemia. Discharge home versus transfer to [facility] Problems: Subjective 24 Hr Interval Summary Free Text/Dictation Patient was said to be discharged or transferred to [place] yesterday on 2016 although she has been refusing to transfer. Patient is requesting to stay at the hospital and is willing to pay the fee out of pocket I have explained that patient has been stable for discharge and casework supervisor have contacted her sister regarding this matter Exam/Review of Systems Vital Signs Vitals Vital Signs Date Time Temp Pulse Resp B/P Pulse Ox O2 Delivery O2 Flow Rate FiO2 03/09/17 15:02 2.0 03/09/17 13:26 88 20 89 Nasal Cannula 03/09/17 11:38 97.8 138/66 03/08/17 20:25 21 Intake and Output 03/08/17 03/08/17 03/09/17 15:00 23:00 07:00 Intake Total 850 ml 1100 ml Balance 850 ml 1100 ml Exam General: The patient is well-developed, Not in acute distress. HEENT: Atraumatic, normocephalic. The pupils are equal and round . Neck: Supple with full range of motion. Chest: Normal expansion of the thorax during inspiration Lungs: Clear to auscultation bilaterally Heart: Normal S1-S2, Regular rhythm and rate. Abdomen: Soft , nontender, nondistended , bowel sounds are present. Extremities: Left upper extremity and shoulder brace, no edema no cyanosis Neurologic: Normal mental status,The patient is awake, alert and oriented . Results Result Diagram: 03/09/17 0625 03/09/17 0625 Results 24 hrs Laboratory Tests Test 03/09/17 06:25 White Blood Count 10.7 Red Blood Count 3.27 L Hemoglobin 10.2 L Hematocrit 31.6 L Mean Corpuscular Volume 96.6 Mean Corpuscular Hemoglobin 31.2 Mean Corpuscular Hemoglobin Concent 32.3 Red Cell Distribution Width 15.7 H Platelet Count 347 # Mean Platelet Volume 10.2 Neutrophils % 83.6 H Lymphocytes % 10.9 L Monocytes % 4.7 Eosinophils % 0.0 Basophils % 0.2 Nucleated Red Blood Cells % 0.0 Neutrophils # 9.0 H Lymphocytes # 1.2 Monocytes # 0.5 Eosinophils # 0.0 Basophils # 0.0 Nucleated Red Blood Cells # 0.0 Sodium Level 133 L Potassium Level 4.2 Chloride Level 101 # Carbon Dioxide Level 26 Anion Gap 10 # Blood Urea Nitrogen 13 Creatinine 0.44 Glucose Level 114 Calcium Level 8.9 Medications Medications Current Medications Morphine Sulfate 2 mg 2 mg Q4H PRN IV PAIN Last administered on 03/09/17 12:56 ; Admin Dose 2 MG; Start 03/06/17 at 22:30 Levofloxacin/ Dextrose (Levaquin 500mg/ D5W 100 ml (Pmx)) 100 ml @ 100 mls/hr Q24H IVPB Last administered on 03/08/17 22:59; Admin Dose 100 MLS/HR; Start at 22:30 Labetalol HCl (Labetalol) 10 mg Q4 PRN IV HTN; Start 03/06/17 at 22:30 Acetaminophen (Tylenol Tab) 650 mg Q4H PRN PO PAIN AND OR ELEVATED TEMP Last administered on 03/08/17 23:11; Admin Dose 650 MG; Start 03/06/17 at 22:30 Ondansetron HCl (Zofran Inj) 4 mg Q6H PRN IV NAUSEA AND/OR VOMITING; Start at 23:00 Fluoxetine HCl (Prozac) 40 mg DAILY PO Last administered on 03/09/17 08:38; Admin Dose 40 MG; Start 03/07/17 at 09:00 Methylprednisolone Sodium Succinate (Solu-Medrol) 60 mg Q12 IV Last administered on 03/09/17 08:38; Admin Dose 60 MG; Start 03/07/17 at 09:00 Alprazolam (Xanax) 0.5 mg TID PRN PO anxiety Last administered on 03/08/17 22: 59; Admin Dose 0.5 MG; Start 03/07/17 at 14:30 Oxycodone/ Acetaminophen (Percocet (5/ 325)) 1 tab Q6H PRN PO PAIN Last administered on 03/09/17t 09:52; Admin Dose 1 TAB; Start 03/07/17 at 14:30 MADELYN LOPES MD March 09, 2017 15:08
[2017-03-09] MEDS: ALPRAZOLAM 0.25 MG TAB PO PRN (15:10)
== END 2017-03-09 18:27 | disposition home or self-care (01) | DRG 871 ==
LOC: E/R 17:09 → TEL 20:56
PROVIDERS: ADMIT Internal Medicine; ATTEND Internal Medicine
DX: A41.9 Sepsis, unspecified organism (principal); J18.9 Pneumonia, unspecified organism; E87.2 Acidosis; J45.901 Unspecified asthma with (acute) exacerbation; E87.6 Hypokalemia; D64.9 Anemia, unspecified; F41.8 Other specified anxiety disorders; S42.252D Displaced fracture of greater tuberosity of left humerus, subsequent encounter for fracture with routine healing
CPT/HCPCS: 71010; 73060; 80048; 80053; 82550; 82553; 83605; 83735; 83880; 84100; 84484; 85025; 85610; 85730; 87040; 93005; 94640; 94644; 94664; 96374; 96375; J0692; J1956; J2060; J2270; J2930; J3370; J7030

== ENCOUNTER 2017-03-22 13:01 | Emergency (ER) | payer OTHER, MEDICAID ==
[~2017-03-22] VITALS: Ht 157.5 cm; Wt 60.0 kg
[~2017-03-22 13:01] MED LIST changes: +FLUO40CA10 PO; +GABA400C14 PO; -HYDR-902 PO; +IPRA4AER INHALATION; +LEVO500T72 PO; +PRED10TA PO
[2017-03-22 13:06] VITALS: Ht 157.5 cm; Wt 60.0 kg
--- NOTE | 2017-03-22 15:00 | ERD ---
ER Documentation Chief Complaint Date/Time DATE: 03/22/17 TIME: 14:58 Chief Complaint LEFT ARM PAIN, HAD [facility] FALL HPI This is a 61-year-old female with a history of hepatitis C presenting to the emergency department complaining of left shoulder, humerus, elbow and wrist pain status post ground-level fall that occurred last night. Patient states that it was slippery on the bed and she fell and landed on her left upper extremity. Patient admits to having restricted range of motion. She states the pain is 7 out of 10. In addition patient states that she is running out of Prozac and Neurontin and asking for a refill. Patient states that her primary care physician is at [place]. She denies taking any medications for pain. She denies any fevers. ROS All systems reviewed and are negative except as per history of present illness. Medications Home Meds Active Scripts Fluoxetine Hcl* (Prozac*) 40 Mg Capsule, 40 MG PO DAILY, #30 CAP Prov:ELENI ACEVEDO PA-C 03/22/17 Tramadol HCl (Tramadol HCl) 50 Mg Tablet, 50 MG PO Q4 Y for PAIN, #30 TAB Prov:ELENI ACEVEDO PA-C 03/22/17 Levofloxacin* (Levaquin*) 500 Mg Tablet, 500 MG PO DAILY, #7 TAB Prov:MADELYN LOPES MD 03/08/17 Albuterol/Ipratropium* (Combivent Respimat*) 20-100 Mcg/Inh - 4 Gm Aer.w.adap, 1 PUFF INHALATION QID, #1 INHALER Prov:MADELYN LOPES MD 03/08/17 Prednisone* (Prednisone*) 10 Mg Tab, 10 MG PO DAILY, #7 TAB Prov:MADELYN LOPES MD 03/08/17 Reported Medications Gabapentin* (Gabapentin*) 400 Mg Capsule, 1200 MG PO BID, #270 CAP 03/06/17 Fluoxetine Hcl* (Prozac*) 40 Mg Capsule, 40 MG PO DAILY, CAP 03/06/17 Allergies Allergies: Coded Allergies: Sulfa (Sulfonamide Antibiotics) (Unverified Allergy, Unknown, RASH HIVES, 03/06/17) PMhx/Soc History of Surgery: Yes (multiple surgeries due to fracture) Anesthesia Reaction: No Hx Respiratory Disorders: Yes (asthma) Hx Cardiac Disorders: No Hx Psychiatric Problems: Yes (anxiety/depression) Hx Miscellaneous Medical Probl: Yes (hepatitis C, skin CA) Hx Alcohol Use: Yes Hx Substance Use: Yes Hx Tobacco Use: No Smoking Status: Never smoker Physical Exam Vitals Vital Signs Date Time Temp Pulse Resp B/P Pulse Ox O2 Delivery O2 Flow Rate FiO2 03/22/17 13:06 98.1 99 18 160/82 99 Physical Exam General: WD/WN, in no apparent distress, non-toxic appearing HENT: NC/AT Eyes: Conjunctiva normal Neck: Supple Pulm: Clear to auscultation, normal labored breathing; no wheezing/rales/ rhonchi heard CV: Good capillary refill GI: Non-distended, no guarding Back: No masses Ext: Tender palpation in the left shoulder and upper arm, patient has arm flexed and close to her and has restricted range of motion. patient had full range of motion of the wrist. negative snuffbox Neuro: Moves on all fours Skin: Hypertrophic Psych: Normal mood Procedures/MDM This is a 61-year-old female with a history of hepatitis C presenting to the emergency department complaining of left shoulder, humerus, elbow and wrist pain status post ground-level fall that occurred last night. Patient states that it was slippery on the bed and she fell and landed on her left upper extremity. I have reviewed patient's past chart and she was just seen here on March 06, 2017 for a fracture at the surgical neck and likely greater tuberosity of the proximal left humerus, patient did not tell me this when I initially saw her however I have discussed this with her and she states that she has not been able to follow-up with an orthopedist because of moving. I have discussed the importance of her following up with an orthopedist since she can have permanent damage and disability. X-ray of the left shoulder was done and radiologist stated that it has progressively increased angulation and impaction at the site of the subacute surgical neck fracture of the proximal humerus. X-ray of the left elbow and wrist did not show any acute fracture or dislocation. Patient was placed in a splint and I have given her information to follow-up at the [facility] to see a orthopedist as soon as possible, patient states she will see her ortho tomorrow. Patient was given a Toradol injection in the ED and prescription for tramadol for outpatient. Patient stable for discharge for home with strict precautions to return to the emergency department for any worsening signs symptoms. She seems to express understanding and agreement XR left wrist - 1. No radiographic evidence of acute osseous abnormality noting osteopenia. 2. 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 XR left elbow - 1. No definite acute osseous abnormality or significant joint effusion, noting the lateral view is slightly limited. 2. Redemonstration of 5 mm needle-like metallic foreign body within the anterior soft tissues, unchanged from prior radiographs. Departure Diagnosis: Primary Impression: Humerus surgical neck fracture Condition: Fair ELENI ACEVEDO PA-C Mar 22, 2017 15:00
--- NOTE | 2017-03-22 15:05 | RADRPT ---
PROCEDURE: XR left humerus CLINICAL INDICATION: Left arm pain TECHNIQUE: 2 images of the left humerus COMPARISON: Radiographs of the left humerus and left shoulder march 06, 2017 and February 20, 2017 FINDINGS: There is progressive increased angulation and impaction at the site of the subacute surgical neck fr acture of the proximal humerus with adjacent callus formation and incomplete healing changes. There is no definite bony bridging. There is no new fracture. Visualized left lung is clear. The soft t issues are otherwise unremarkable. IMPRESSION: 1. Progressively increased angulation and impaction at the site of the subacute surgical neck fract ure of the proximal humerus as above. RPTAT: UU .Thaddeus Canales MD, MD Date Time Electronically viewed and signed by .Thaddeus Canales MD, on 03/22/2017 15:05 .K/
--- NOTE | 2017-03-22 15:07 | RADRPT ---
PROCEDURE: XR Elbow. CLINICAL INDICATION: Trauma, left elbow pain TECHNIQUE: AP, lateral and oblique views of the left elbow performed. COMPARISON: Radiographs of the left elbow dated February 20, 2017 FINDINGS: The exam is somewhat limited due to suboptimal lateral view. There is no radiographic evidence of a cute fracture. There is no definite joint effusion. There is a linear density projecting over the volar soft tissues measuring 5 mm in length, unchanged from prior study. IMPRESSION: 1. No definite acute osseous abnormality or significant joint effusion, noting the lateral view is s lightly limited. 2. Redemonstration of 5 mm needle-like metallic foreign body within the anterior soft tissues, uncha nged from prior radiographs. RPTAT: UU .Thaddeus Canales MD, Date Time Electronically viewed and signed by .Thaddeus Canales MD, on 03/22/2017 15:07 .K/
--- NOTE | 2017-03-22 15:08 | RADRPT ---
PROCEDURE: XR left shoulder CLINICAL INDICATION: Left arm pain TECHNIQUE: 2 images of the left shoulder COMPARISON: Radiographs of the left humerus and left shoulder march 06, 2017 and February 20, 2017 FINDINGS: There is progressive increased angulation and impaction at the site of the subacute surgical neck fr acture of the proximal humerus with adjacent callus formation and incomplete healing changes. There is no definite bony bridging. There is no new fracture. Visualized left lung is clear. The soft t issues are otherwise unremarkable. IMPRESSION: 1. Progressively increased angulation and impaction at the site of the subacute surgical neck fract ure of the proximal humerus as above. RPTAT: UU .Thaddeus Canales MD, MD Date Time Electronically viewed and signed by .Thaddeus Canales MD, on 03/22/2017 15:08 .K/
--- NOTE | 2017-03-22 15:10 | RADRPT ---
PROCEDURE: XR Wrist. CLINICAL INDICATION: Left wrist pain TECHNIQUE: AP, lateral and oblique views of the left wrist were performed. COMPARISON: No prior studies are available for comparison. FINDINGS: Examination slightly limited due to lack of a true lateral radiograph. The bones are osteopenic. There is no definite acute fracture. Alignment is normal. There is moderate to severe first carpometacarpal and moderate triscaphe osteoarthrosis. Visualized soft tissues are grossly unremarkable. IMPRESSION: 1. No radiographic evidence of acute osseous abnormality noting osteopenia. 2. 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 RPTAT: UU .Thaddeus Canales MD, MD Date Time Electronically viewed and signed by .Thaddeus Canales MD, on 03/22/2017 15:09 .K/
[2017-03-22] MEDS ORDERED: TRAM50TA2 PO (15:17)
[2017-03-22] MEDS ORDERED: FLUO40CA10 PO (15:21)
[2017-03-22] MEDS ORDERED: KETOROLAC 30 MG INJ IM STA (15:23)
[2017-03-22] MEDS ORDERED: HYDR-906 PO (15:54)
[2017-03-22] MEDS ORDERED: HYDROCODONE/APAP (5/325) TAB PO ONE (16:00)
== END 2017-03-22 16:03 | disposition home or self-care (01) ==
LOC: FTE 13:01
DX: S42.212A Unspecified displaced fracture of surgical neck of left humerus, initial encounter for closed fracture (principal); J45.909 Unspecified asthma, uncomplicated; W18.39XA Other fall on same level, initial encounter; Y92.9 Unspecified place or not applicable; Z85.828 Personal history of other malignant neoplasm of skin
CPT/HCPCS: 73030; 73060; 73080; 73110; J1885; 96372